=== PATIENT | male | born 1935 ===

== ENCOUNTER 2022-02-25 07:40 | Day surgery (SDC) | payer MEDICARE ==
[~2022-02-25] VITALS: Ht 180.3 cm; Wt 78.6 kg
[2022-02-25] MEDS ORDERED: LISI20 PO (08:48)
[2022-02-25] MEDS ORDERED: TIMO.5OPSO (08:49)
[2022-02-25] MEDS ORDERED: EZALLOR SPRINKL10 MG PO (08:49)
[2022-02-25] MEDS ORDERED: LATA.005SO BOTHEYES (08:50)
== END 2022-02-25 09:56 | disposition home or self-care (01) ==
LOC: ORSCSDS 07:40
PROVIDERS: Student in an Organized Health Care Education/Training Program
PROC: 08RJ3JZ Replacement of Right Lens with Synthetic Substitute, Percutaneous Approach (ICD-10-PCS; principal; 2022-02-25 09:00)
DX: H25.11 Age-related nuclear cataract, right eye (principal); I10 Essential (primary) hypertension; Z79.899 Other long term (current) drug therapy
CPT/HCPCS: J2001; J2250; J3010; J7040; V2632